=== PATIENT | female | born 1975 | race Asian ===

== ENCOUNTER 2023-05-26 19:28 | Emergency (ER) | payer MEDICAID ==
[~2023-05-26] VITALS: Ht 154.9 cm; Wt 57.2 kg
[2023-05-26 20:29] VITALS: BP_SYST 109; PULSE 94; RESP 20; TEMP 98; O2SAT 98
[2023-05-26] MEDS ORDERED: HYDROcodone/ACETAMIN 10-325 MG TAB PO ONE (21:30)
[2023-05-26] MEDS ORDERED: IBUPROFEN 800 MG TABLET PO ONE (21:30)
[2023-05-26] MEDS ORDERED: ONDANSETRON 4 MG ODT TAB PO ONE (21:30)
[2023-05-26] MEDS ORDERED: ACYC-133 PO (22:18)
[2023-05-26] MEDS ORDERED: HYDC2.5% TP (22:18)
[2023-05-26] MEDS ORDERED: IBUP-1971 PO (22:18)
[2023-05-26] MEDS ORDERED: HYDR-3927 PO (22:18)
[2023-05-26 22:30] VITALS: BP_SYST 109; PULSE 94; RESP 20; TEMP 98; O2SAT 98
== END 2023-05-26 22:30 | disposition home or self-care (01) ==
LOC: SED 19:28
DX: B02.9 Zoster without complications (principal); B01.9 Varicella without complication; R21 Rash and other nonspecific skin eruption; Z79.899 Other long term (current) drug therapy
CPT/HCPCS: 99284; Q0162